=== PATIENT | male | born 1950 | race Two or more races ===

== ENCOUNTER 2022-07-02 23:10 | Emergency (ER) | payer OTHER, SELFPAY ==
[2022-07-02 23:16] VITALS: BP 129/72; PULSE 82; RESP 20; TEMP 36.7; BMI 24.2
[2022-07-03 00:13] VITALS: BP 127/70; PULSE 72; RESP 18; O2SAT 99
--- NOTE | 2022-07-03 00:13 | CRLHL7_ITS ---
For Patients: As a result of the Century Cures Act, medical imaging exams and procedure reports are released immediately into your electronic medical record. You may view this report before your referring provider. If you have questions, please contact your health care provider. INDICATION: Shortness of breath. TECHNIQUE: Chest 1 views. COMPARISON: 12/02/2015. FINDINGS: Cardiovasculature and mediastinum: Heart size and vasculature are normal in caliber and appearance. Lungs and pleural spaces: Lungs are clear. No sign of infiltrate or mass. No sign of pleural effusion. No pneumothorax. Bones and soft tissues: No significant findings. IMPRESSION: No acute findings and no significant changes from the prior exam. Dictated by Yasir Boyd MD @ 07/03/2022 1:12:06 AM (Electronically Signed)
[2022-07-03 00:24] VITALS: BP 124/87; PULSE 72; RESP 18; O2SAT 98
--- NOTE | 2022-07-03 00:27 | ED_ITS ---
HPI - General Adult General Date Seen: 07/03/22 Chief complaint: Shortness of Breath/Dyspnea Stated complaint: hard time breathing Time Seen by Provider: 07/03/22 00:02 Source: patient and [employer] Mode of arrival: ambulatory Limitations: no limitations History of Present Illness HPI narrative: Patient is a 71-year-old male, Polish speaking, history is obtained with the assistance of an firer bisque kiln. He reports that he went to bed feeling fine but woke up sometime later feeling short of breath. He says that he did not feel well at all at the time although he is feeling better now. Shortness of breath is not positional. In fact he feels better lying down than sitting up. He denies any chest pain, no fevers or cough, no unusual leg pain or swelling. He says that while he feels better he is afraid to go to sleep because he is afraid he might not wake up. He denies any significant medical history aside from what sounds like may be an inguinal hernia. He does not take any regular medications. He smokes 1-2 cigarettes a day. No significant alcohol use. Related Data Allergies Allergy/AdvReac Type Severity Reaction Status Date / Time No Known Drug Allergies Allergy Verified 07/02/22 23:21 Review of Systems Status of ROS: Reports: 10 or more systems reviewed and unremarkable except as noted in History and below [facility] Social History Smoking Status: Current every day smoker What tobacco products do you use: cigarettes Smoking packs per day: 0.25 Smoking cigarettes per day: 5.0 Do you use any of these nicotine containing products: None Second hand tobacco smoke exposure: No How often do you have a drink containing alcohol: monthly or less How many standard drinks containing alcohol do you have on a typical day: 1 or 2 How often do you have six or more drinks on one occasion: Never AUDIT-C Alcohol total score: 1 Non-prescribed substance use: denies use service: No Exam Narrative: Exam Narrative: Vital signs as noted above. In general, an alert, well-appearing patient. Breathing easily. Head: Normocephalic, atraumatic. Eyes: Pupils are equal reactive. Extraocular movements are full. Conjunctivae are normal. ENT: Mucous membranes are moist. Throat is normal. Neck: Supple without lymphadenopathy. Heart: Regular rate and rhythm. No murmur or rub. Lungs: Clear bilaterally. No increased work of breathing, crackles or wheezes. Abdomen: Soft and nontender. No organomegaly. Extremities: Well perfused. No edema. No calf tenderness. Pulses intact. Neurologic: Patient is alert and oriented to person and place. Speech is fluent. Face is symmetric. Moves all extremities equally. Affect: Normal. Skin: Warm and dry. Well perfused. Const: Vital Signs, click to edit/add: Vital Signs - 24 hr 07/02/22 23:16 07/03/22 00:13 07/03/22 00:13 Temperature 98.0 F Pulse Rate [Right Pulse Oximeter] 82 72 Respiratory Rate 20 18 Blood Pressure [Ri ght Upper Arm] 129/72 127/70 Pulse Oximetry 99 Oxygen Delivery Me thod Room Air 07/03/22 00:24 07/03/22 01:11 Temperature Pulse Rate [Right Pulse Oximeter] 72 72 Respiratory Rate 18 18 Blood Pressure [Ri ght Upper Arm] 124/87 119/71 Pulse Oximetry 98 98 Oxygen Delivery Me thod Room Air Room Air Documenting provider has reviewed patient's vital signs: yes Course Course Hospital Course: An EKG by my review shows a normal sinus rhythm, ventricular rate of 81 beats per minute. No acute ST segment changes. He does have an S1 Q3 T3 pattern. He is not hypoxic nor tachycardic, breathing easily now with symptoms that seem to largely have resolved. Labs and x-ray are pending. Lungs are clear, I do not hear any crackles suggestive of pulmonary edema, he does not have any wheezing or bronchospasm. No immediate treatment seems necessary. Chest x-ray by my review shows a mildly elevated right hemidiaphragm, no other acute findings. Final radiology report reveals stable chest x-ray without acute findings. Labs are unremarkable. Troponin is negative, D-dimer is 0.48. White count is normal, hemoglobin is 13.6. Metabolic panel is normal. LFTs are unremarkable. CRP is 0.5. COVID is negative. We were unable to do a BNP tonight due to the machine being down. However, on x-ray there is no evidence of significant pulmonary edema and I do not hear crackles on exam. He does not have a history of congestive heart failure. There is no evidence of acute coronary syndrome here. Nothing on exam or x-ray to suggest an infectious cause for symptoms. He is not anemic. Overall, I do not find a clear explanation for his earlier shortness of breath. At this time he is feeling back to normal. I have recommended that we discharge home, primary care follow-up in the next week or so. Return at any time for acute worsening or new symptoms such as fever, chest pain etcetera. Vital Signs Vital signs: Initial Vital Signs Temperature 98.0 F 07/02/22 23:16 Temperature Source Temporal Artery Scan 07/02/22 23:16 Pulse Rate 82 07/02/22 23:16 Pulse Rhythm Regular 07/02/22 23:16 Pulse Strength 3+ Normal 07/02/22 23:16 Respiratory Rate 20 07/02/22 23:16 Blood Pressure 129/72 07/02/22 23:16 Blood Pressure Mean 91 07/02/22 23:16 Blood Pressure Position Standing 07/02/22 23:16 Oxygen Delivery Method Room Air 07/02/22 23:16 Vital Signs Temperature 98.0 F 07/02/22 23:16 Pulse Rate 82 07/02/22 23:16 Respiratory Rate 20 07/02/22 23:16 Blood Pressure 129/72 07/02/22 23:16 Oxygen Delivery Method Room Air 07/02/22 23:16 Temperature 98.0 F 07/02/22 23:16 Pulse Rate 72 07/03/22 01:11 Respiratory Rate 18 07/03/22 01:11 Blood Pressure 119/71 07/03/22 01:11 Pulse Oximetry 98 07/03/22 01:11 Oxygen Delivery Method Room Air 07/03/22 01:11 Medical Decision Making Lab Data Labs: Lab Results 07/03/22 07/03/22 Range/Units 00:27 00:35 WBC 8.10 (4.50-11.00) K/uL RBC 4.29 L (4.30-5.90) m/uL Hgb 13.6 (13.5-17.5) gm/dL Hct 39.1 (37.0-53.0) % MCV 91 (80-100) fL MCH 32 (26-34) pg MCHC 35 (32-36) gm/dL RDW Coeff of Liliana 13.1 (11.5-15.5) % Plt Count 195 (140-440) K/uL Neut % (Auto) 54.6 (42.0-72.0) % Lymph % (Auto) 33.2 (20-44) % [place] % (Auto) 9.8 (0.0-11.0) % Eos % (Auto) 1.7 (0.0-7.0) % Baso % (Auto) 0.2 (0.0-3.0) % Neut # (Auto) 4.42 (1.7-7.0) K/uL Lymph # (Auto) 2.69 (0.90-2.90) K/uL [place] # (Auto) 0.80 (0.00-0.90) K/UL Eos # (Auto) 0.14 (0.00-0.50) K/uL Baso # (Auto) 0.02 (0.00-0.30) K/uL D-Dimer Quant (PE/DVT) 0.48 (0.00-0.50) ug/ml Sodium 138 (135-149) mmol/L Potassium 3.8 (3.6-5.1) mmol/L Chloride 104 (96-114) mmol/L Carbon Dioxide 25 (20-32) mmol/L BUN 16 (7-30) mg/dL Creatinine 0.7 (0.5-1.5) mg/dL Estimated Creat Clear 59.37 Estimated GFR 97 ml/min Glucose 152 H (60-115) mg/dL Calcium 8.9 (8.4-10.6) mg/dL Total Bilirubin 0.3 (0.1-1.5) mg/dL Direct Bilirubin 0.2 (0.0-0.5) mg/dL AST 23 (12-35) U/L ALT 23 (4-50) U/L Alkaline Phosphatase 99 (40-150) U/L C-Reactive Protein 0.5 (0.5-1.0) mg/dL NT-Pro-B Natriuret Pep Cancelled Total Protein 6.6 (6.0-8.3) g/dL Albumin 4.0 (3.3-5.0) g/dL SARS-CoV-2 (PCR) Negative SARS-CoV-2 (Negative) Discharge Plan Discharge Clinical Impression: SOB (shortness of breath) Patient Disposition: Home, Self-Care Condition: Improved Instructions: Shortness of Breath (ED) Additional Instructions: Follow-up with your clinic doctor if symptoms persist. Return for worsening symptoms. All of your test tonight were normal including test to check your heart and lungs. Activity Level: No Restrictions Discharge Diet: Regular Follow Up/Referrals: Julio Dominguez DO [Primary Care Provider] - Stand Alone Forms: [employer] Info Instructions
[2022-07-03 00:33] LABS: Basophils Absolute Auto 0.02 K/uL (0.00-0.30); Basophils Percent Auto 0.2 % (0.0-3.0); Eosinophils Absolute Auto 0.14 K/uL (0.00-0.50); Eosinophils Percent Auto 1.7 % (0.0-7.0); Hematocrit 39.1 % (37.0-53.0); Hemoglobin* 13.6 gm/dL (13.5-17.5); Immature Granulocytes Abs Auto 0.04 K/uL (0.00-0.30); Immature Granulocytes Pct Auto 0.5 %; Lymphocytes Absolute Auto 2.69 K/uL (0.90-2.90); Lymphocytes Percent Auto 33.2 % (20-44); Mean Corpuscular HGB Conc 35 gm/dL (32-36); Mean Corpuscular Hemoglobin 32 pg (26-34); Mean Corpuscular Volume 91 fL (80-100); Monocytes Percent Auto 9.8 % (0.0-11.0); Neutrophils Absolute Auto 4.42 K/uL (1.7-7.0); Neutrophils Percent Auto 54.6 % (42.0-72.0); Platelet Count* 195 K/uL (140-440); RDW Coefficient of Variation % 13.1 % (11.5-15.5); Red Blood Count 4.29 m/uL (4.30-5.90)
[2022-07-03 00:34] LABS: Slide Review Reflex No
[2022-07-03 00:58] LABS: Chloride* 104 mmol/L (96-114); Potassium* 3.8 mmol/L (3.6-5.1); Sodium* 138 mmol/L (135-149)
[2022-07-03 01:00] LABS: Alanine Aminotransferase* 23 U/L (4-50); Alkaline Phosphatase* 99 U/L (40-150); Aspartate Amino Transferase* 23 U/L (12-35); Bilirubin Direct* 0.2 mg/dL (0.0-0.5); Bilirubin Total* 0.3 mg/dL (0.1-1.5); Creatinine* 0.7 mg/dL (0.5-1.5); Est. Creatinine Clearance* 59.37; Estimated Glomerular Filt Rate 97 ml/min; Total Protein* 6.6 g/dL (6.0-8.3)
[2022-07-03 01:01] LABS: Blood Urea Nitrogen* 16 mg/dL (7-30); Carbon Dioxide* 25 mmol/L (20-32)
[2022-07-03 01:02] LABS: Calcium* 8.9 mg/dL (8.4-10.6); Glucose* 152 mg/dL (60-115)
[2022-07-03 01:04] LABS: C Reactive Protein* 0.5 mg/dL (0.5-1.0)
[2022-07-03 01:11] VITALS: BP 119/71; PULSE 72; RESP 18; O2SAT 98
[2022-07-03 01:21] LABS: SARS PCR* Negative SARS-CoV-2 (Negative)
[2022-07-03 02:04] LABS: D Dimer Quantitative* 0.48 ug/ml (0.00-0.50)
[2022-07-04 03:00] LABS: Troponin I* < 0.01 ng/mL (0.01-0.04)
== END 2022-07-03 02:15 | disposition home or self-care (01) ==
PROVIDERS: Emergency Provider Emergency Medicine; PCP Family Medicine
DX: R06.02 Shortness of breath (principal)
CPT/HCPCS: 36415; 71045; 80048; 80076; 83880; 84484; 85025; 85379; 86140; 87635; 93005; 94761; 99284; 99285

== ENCOUNTER 2022-09-05 14:58 | Emergency (ER) | payer OTHER, SELFPAY ==
[2022-09-05 15:08] VITALS: BP 131/71; PULSE 71; RESP 16; TEMP 36.8; O2SAT 97; BMI 25.8
--- NOTE | 2022-09-05 15:12 | ED_ITS ---
HPI - Male Genitourinary General Time Seen by Provider: 15:12 Date Seen: 09/05/22 Chief complaint: Urogenital Problems, Male Stated complaint: Testicular pain Time Seen by Provider: 09/05/22 14:59 Source: patient and RN notes reviewed Mode of arrival: ambulatory Limitations: no limitations History of Present Illness HPI Narrative: Patient is a 71-year-old male coming in with left testicular pain. He has been using an [id number] anti-inflammatory that is from [place] called Flanax, took this at 10:00 a.m. and is not helping. He denies any trauma but thinks this left testicular pain could be related to the work he does. He states about 8 years ago or so someone told him that he had a fatty mass in this left testicle and it will sometimes bother him. He denies any acute trauma, no fevers or chills. Pain does radiate up in to the groin. No nausea vomiting. Maybe some difficulty with urination at times. No hematuria. He went to urgent care initially and they did refer him down here as he will need an ultrasound. He also does complain of abdominal pain, points to left mid abdomen where the pain is. Complaint: testicle pain Related Data Home Medications Medication Instructions Recorded Confirmed naproxen sodium 220 mg tablet 220 mg PO Q12H PRN 09/05/22 09/05/22 (Flanax (naproxen)) Previous Rx's Medication Instructions Recorded cephalexin 500 mg tablet 500 mg PO TID #21 tabs 09/05/22 oxycodone 5 mg tablet 5 mg PO Q6H PRN pain #20 tabs 09/05/22 tamsulosin 0.4 mg capsule (Flomax) 0.4 mg PO DAILY #14 caps 09/05/22 Allergies Allergy/AdvReac Type Severity Reaction Status Date / Time No Known Drug Allergies Allergy Verified 07/02/22 23:21 Review of Systems Status of ROS: Reports: 6 or more systems reviewed and unremarkable except as noted in History and below PFSH PFSH Social History Smoking Status: Current every day smoker What tobacco products do you use: cigarettes Smoking packs per day: 0.25 Smoking cigarettes per day: 5.0 Do you use any of these nicotine containing products: None Second hand tobacco smoke exposure: No How often do you have a drink containing alcohol: monthly or less How many standard drinks containing alcohol do you have on a typical day: 1 or 2 How often do you have six or more drinks on one occasion: Never AUDIT-C Alcohol total score: 1 Non-prescribed substance use: denies use service: No Exam Const: Vital Signs, click to edit/add: Vital Signs - 24 hr 09/05/22 15:08 09/05/22 17:14 Temperature 98.2 F Pulse Rate [Pulse Oximeter] 71 55 L Respiratory Rate 16 12 Blood Pressure [Le ft Upper Arm] 131/71 125/73 Pulse Oximetry 97 96 Oxygen Delivery Me thod Room Air Room Air Documenting provider has reviewed patient's vital signs: yes Common normals: no apparent distress, average body habitus, oriented x3, no limitations, healthy appearing, alert and well nourished General appearance: cooperative, comfortable, well kempt and well developed HENMT: Common normals: normocephalic, head/scalp atraumatic and hearing grossly normal bilaterally Head and scalp: normocephalic and atraumatic Face and sinus: normal facial exam Eye: Common normals: PERRL, EOMs intact bilaterally, conjunctivae normal and no scleral icterus Conjunctiva: conjunctiva(e) normal Pupil: PERRL Lymph: Lymphatic: no lymphadenopathy noted GI: Common normals: Normal to inspection, nondistended, normoactive bowel sounds present, soft to palpation and non-tender Palpation: soft : Penis: normal penis and uncircumcised Scrotum: testes descended bilaterally Other: Visual appearance looks normal and symmetric, no significant swelling noted. On examination the left testicle is tender over the posterior aspect. There is a fullness and contour change on the superior posterior aspect of the testicle. This could be epididymal or the testicle itself, cannot differentiate this lesion further. He is definitely tender. It is maybe a little softer than the testicular tissue itself but it is not fully fluctuant. He is quite tender when I palpate this area. Neuro: Common normals: oriented x3 Sensorium/orientation: alert Psych: Appearance: well kempt Course Course Hospital Course: We will obtain urinalysis, basic blood work and get a scrotal ultrasound. Have reviewed with patient that we need to better define what actually is wrong and that will direct our treatment. Reevaluation(s) Time of Reevaluation #1: 18:54 Reevaluation #1: Have reviewed with patient the finding of obstructing kidney stone on CT, stable left testicular/epididymal lesion. Reviewed plan with outpatient urology. All institutions are on divert and have no hospital beds in the [facility] area, expanded [facility] including [facility] and [facility]. He is stable and at this time should be able to managed outpatient, have stressed to him the importance of this follow up to save this left kidney from damage. Patient's pain is gone with the 5 mg oral oxycodone. Consultations Consultation #1: Contacted Urology at [place], spoke with Dr. Landon, he does agree to see patient in follow-up in clinic. There is no availability for inpatient at this time, patient there medically should be able to be managed outpatient given current labs/clinical status. Time: 18:39 Vital Signs Vital signs: Initial Vital Signs Temperature 98.2 F 09/05/22 15:08 Temperature Source Temporal Artery Scan 09/05/22 15:08 Pulse Rate 71 09/05/22 15:08 Pulse Rhythm Regular 09/05/22 15:08 Respiratory Rate 16 09/05/22 15:08 Blood Pressure 131/71 09/05/22 15:08 Blood Pressure Mean 91 09/05/22 15:08 Pulse Oximetry 97 09/05/22 15:08 Oxygen Delivery Method Room Air 09/05/22 15:08 Vital Signs Temperature 98.2 F 09/05/22 15:08 Pulse Rate 71 09/05/22 15:08 Respiratory Rate 16 09/05/22 15:08 Blood Pressure 131/71 09/05/22 15:08 Pulse Oximetry 97 09/05/22 15:08 Oxygen Delivery Method Room Air 09/05/22 15:08 Temperature 98.2 F 09/05/22 15:08 Pulse Rate 55 L 09/05/22 17:14 Respiratory Rate 12 09/05/22 17:14 Blood Pressure 125/73 09/05/22 17:14 Pulse Oximetry 96 09/05/22 17:14 Oxygen Delivery Method Room Air 09/05/22 17:14 MDM - Male Genitourinary Lab Data Attestation: I reviewed the patient's lab results. Labs: Lab Results 09/05/22 09/05/22 Range/Units 15:15 15:50 WBC 12.86 H (4.50-11.00) K/uL RBC 4.57 (4.30-5.90) m/uL Hgb 14.4 (13.5-17.5) gm/dL Hct 41.4 (37.0-53.0) % MCV 91 (80-100) fL MCH 32 (26-34) pg MCHC 35 (32-36) gm/dL RDW Coeff of Liliana 12.8 (11.5-15.5) % Plt Count 216 (140-440) K/uL Neut % (Auto) 69.4 (42.0-72.0) % Lymph % (Auto) 21.4 (20-44) % [place] % (Auto) 8.2 (0.0-11.0) % Eos % (Auto) 0.6 (0.0-7.0) % Baso % (Auto) 0.2 (0.0-3.0) % Neut # (Auto) 8.90 H (1.7-7.0) K/uL Lymph # (Auto) 2.80 (0.90-2.90) K/uL [place] # (Auto) 1.10 H (0.00-0.90) K/UL Eos # (Auto) 0.10 (0.00-0.50) K/uL Baso # (Auto) 0.00 (0.00-0.30) K/uL Abs Immat Gran (auto) 0.00 (0.00-0.30) K/uL Imm/Tot Granulo (auto) 0.2 % Sodium 137 (135-149) mmol/L Potassium 3.8 (3.6-5.1) mmol/L Chloride 103 (96-114) mmol/L Carbon Dioxide 24 (20-32) mmol/L BUN 19 (7-30) mg/dL Creatinine 0.9 (0.5-1.5) mg/dL Estimated Creat Clear 59.37 Estimated GFR 90 ml/min Glucose 90 (60-115) mg/dL Calcium 9.0 (8.4-10.6) mg/dL C-Reactive Protein < 0.5 L (0.5-1.0) mg/dL Urine Color Yellow (Yellow) Urine Appearance Cloudy A (Clear) Urine pH 5.5 (5.0-8.5) Ur Specific [place] 1.025 (1.000-1.030) Urine Protein 1+ A (Negative) Urine Glucose (UA) Negative (Negative) Urine Ketones Negative (Negative) Urine Blood 3+ A (Negative) Urine Nitrite Negative (Negative) Urine Bilirubin Negative (Negative) Urine Urobilinogen 0.2 (0.2-1.0) Ur Leukocyte Esterase Negative (Negative) Urine RBC 10-25 A (0-2) Urine WBC 0-2 (0-5) Ur Squamous Epith Cells Few (None-Few) Urine Bacteria Few A (None) Imaging Data CT scan - abdomen: Attestation: I have reviewed the pertinent imaging results. Radiologist's impression: Patient: SHAINA BEGUM Facility:?[facility] Patient ID:?[id number] Site Patient ID:?[id number]. Site :?[id number] Study:?CT Abdomen/Pelvis WITHOUT-09/05/2022 5:09:32 PM Ordering Physician:?Jluis Cuellar Final Report: INDICATION: Left mid abdominal pain with microscopic hematuria. TECHNIQUE: Axial images were obtained from the diaphragm to the pubic symphysis. Reformats were obtained in the coronal and sagittal plane. IV Contrast: None Oral Contrast: None COMPARISON: None. FINDINGS: Lower chest: Calcified granulomata within the right lung base. Liver: Calcification within the liver consistent with old granulomatous disease. Cyst within the liver have the dome measuring 16 millimeters. Other subcentimeter hypodensities are too small for characterization. Gallbladder and bile ducts: Unremarkable. No stones or inflammation. No biliary dilatation. Spleen: Unremarkable. Normal in size without mass. Pancreas: Unremarkable. No mass or inflammation. Adrenal glands: Unremarkable. No nodules. Kidneys: Right kidney is normal in contour without hydronephrosis. Nephrolithiasis present on the left with perinephric inflammatory fat stranding and small perinephric fluid. Moderate left hydronephrosis extends to the ureterovesicular junction where there is an obstructing 11 x 5 millimeter stone. Vasculature: Unremarkable. GI tract: The stomach is unremarkable. No dilated loops of large or small intestine. Appendix unremarkable. Colonic diverticulosis without localizing inflammation. Pelvis: Mild prostatic enlargement. 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 IMPRESSION: 1. Nephrolithiasis with moderate left hydronephrosis and obstructing left ureterovesicular junction stone measuring 11 x 5 millimeters. 2. Colonic diverticulosis. 3. Old granulomatous disease. Please note that all CT scans at this facility use dose modulation, iterative reconstruction, and/or weight-based dosing when appropriate to reduce radiation dose to as low as reasonably achievable. Dictated by Keven Simpson MD @ 09/05/2022 5:28:28 PM (Electronic Signature) US scrotum: Attestation: I have reviewed the pertinent imaging results. Radiologist's impression: Patient: ALE MERRITT Facility:?[facility] Patient ID:?[id number] Site Patient ID:?[id number]. Site :?[id number] Study:?US Testicle SCROTUM-09/05/2022 4:31:42 PM Ordering Physician:?Jluis Cuellar Final Report: Indication: Left testicular pain. Technique: Ultrasound of the scrotum and contents. Sonographic chi-scale images were obtained with spectral and color Doppler waveform and spectral waveform analysis of the testicles. Comparison: Scrotal ultrasound dated 04/11/2011. Findings: Both testicles are normal in size and echotexture. Right testicle measures 4.1 x 2.2 x 3.2 cm. Left testicle measures 4.4 x 2.0 x 3.0 cm. No suspicious intratesticular mass is identified. Normal arterial and venous color Doppler blood flow and spectral waveforms are present in both testicles. Epididymis: Superior to the left testicle, possibly arising from the left epididymis is a large 4.4 x 2.4 x 3.3 cm cystic structure with internal debris. This does not appear significantly changed compared to a prior study in 2012, which measured 4.9 x 2.6 x 3.6 cm. There is no suspicious internal vascularity. Other: No varicocele shown. Impression: 1. Large cystic structure with internal debris superior to the left testicle, possibly arising from the left epididymis, measuring 4.4 x 2.4 x 3.3 cm. This is essentially unchanged compared to a prior study in 2012, and is therefore likely benign. Differential includes a loculated complex hydrocele versus spermatocele. 2. No evidence of testicular torsion bilaterally. Dictated by Alexandra Shelby MD @ 09/05/2022 5:44:49 PM (Electronic Signature) Discharge Plan Discharge Clinical Impression: Benign neoplasm of left epididymis, Urinary tract obstruction due to kidney stone Patient Disposition: Home, Self-Care Condition: Stable Instructions: Kidney Stones (ED), Renal Colic (ED) Additional Instructions: Need to drink plenty of fluids. I believe your pain is coming from an obstructing kidney stone that is large in the left side, 11 x 5 mm. This is unlikely to pass on its own. We have spoken with Dr. Landon a urologist in [place]. Call his clinic tomorrow to get scheduled for an appointment next week, phone number is [phone]. Use Tylenol 1000 mg 3 times a day baseline for pain. Can use the oxycodone as needed for severe pain, cannot drive or operate machinery while you are on this. Oxycodone can be constipating, may need to use stool softener such as senna or MiraLax while on this. Use Flomax daily until stone has passed or has been surgically removed. Take antibiotic as prescribed. If you develop fever, uncontrolled pain, uncontrolled vomiting, do recommend re-evaluation in the setting of this retained kidney stone. Can talk to the urologist about the left testicular lesion when you follow-up. Bring disc with radiology images to the urologist appointment. Activity Level: Activity as Tolerated Prescriptions: New cephalexin 500 mg tablet 500 mg PO TID Qty: 21 0RF tamsulosin [Flomax] 0.4 mg capsule 0.4 mg PO DAILY Qty: 14 0RF oxycodone 5 mg tablet 5 mg PO Q6H PRN (Reason: pain) Qty: 20 0RF No Action naproxen sodium [Flanax (naproxen)] 220 mg tablet 220 mg PO Q12H PRN Follow Up/Referrals: Julio Dominguez DO [Referring] - Stand Alone Forms: [employer] Info Instructions
[2022-09-05 15:33] LABS: Appearance Urine Cloudy (Clear); Bilirubin Urine Negative (Negative); Blood Urine 3+ (Negative); Color Urine Yellow (Yellow); Glucose Urine Negative (Negative); Ketones Urine Negative (Negative); Leukocyte Esterase Urine Negative (Negative); Nitrite Urine Negative (Negative); Protein Urine 1+ (Negative); Specific Gravity Urine 1.025 (1.000-1.030); Urobilinogen Urine 0.2 (0.2-1.0); pH Urine 5.5 (5.0-8.5)
[2022-09-05 16:02] LABS: Basophils Percent Auto 0.2 % (0.0-3.0); Eosinophils Percent Auto 0.6 % (0.0-7.0); Hematocrit 41.4 % (37.0-53.0); Hemoglobin* 14.4 gm/dL (13.5-17.5); Immature Granulocytes Pct Auto 0.2 %; Lymphocytes Percent Auto 21.4 % (20-44); Mean Corpuscular HGB Conc 35 gm/dL (32-36); Mean Corpuscular Hemoglobin 32 pg (26-34); Mean Corpuscular Volume 91 fL (80-100); Monocytes Percent Auto 8.2 % (0.0-11.0); Neutrophils Percent Auto 69.4 % (42.0-72.0); Platelet Count* 216 K/uL (140-440); RDW Coefficient of Variation % 12.8 % (11.5-15.5); Red Blood Count 4.57 m/uL (4.30-5.90); White Blood Count* 12.86 K/uL (4.50-11.00)
[2022-09-05 16:03] LABS: Bacteria Urine Few; Squamous Epithelial Cell Urine Few (None-Few); WBC Urine 0-2 (0-5)
[2022-09-05 16:06] LABS: Slide Review Reflex No
[2022-09-05 16:17] LABS: Chloride* 103 mmol/L (96-114)
[2022-09-05 16:18] LABS: Potassium* 3.8 mmol/L (3.6-5.1); Sodium* 137 mmol/L (135-149)
[2022-09-05 16:20] LABS: Creatinine* 0.9 mg/dL (0.5-1.5); Est. Creatinine Clearance* 59.37; Estimated Glomerular Filt Rate 90 ml/min
[2022-09-05 16:21] LABS: Blood Urea Nitrogen* 19 mg/dL (7-30); Carbon Dioxide* 24 mmol/L (20-32); Glucose* 90 mg/dL (60-115)
--- NOTE | 2022-09-05 16:21 | CRLHL7_ITS ---
For Patients: As a result of the Century Cures Act, medical imaging exams and procedure reports are released immediately into your electronic medical record. You may view this report before your referring provider. If you have questions, please contact your health care provider. INDICATION: Left mid abdominal pain with microscopic hematuria. TECHNIQUE: Axial images were obtained from the diaphragm to the pubic symphysis. Reformats were obtained in the coronal and sagittal plane. IV Contrast: None Oral Contrast: None COMPARISON: None. FINDINGS: Lower chest: Calcified granulomata within the right lung base. Liver: Calcification within the liver consistent with old granulomatous disease. Cyst within the liver have the dome measuring 16 millimeters. Other subcentimeter hypodensities are too small for characterization. Gallbladder and bile ducts: Unremarkable. No stones or inflammation. No biliary dilatation. Spleen: Unremarkable. Normal in size without mass. Pancreas: Unremarkable. No mass or inflammation. Adrenal glands: Unremarkable. No nodules. Kidneys: Right kidney is normal in contour without hydronephrosis. Nephrolithiasis present on the left with perinephric inflammatory fat stranding and small perinephric fluid. Moderate left hydronephrosis extends to the ureterovesicular junction where there is an obstructing 11 x 5 millimeter stone. Vasculature: Unremarkable. GI tract: The stomach is unremarkable. No dilated loops of large or small intestine. Appendix unremarkable. Colonic diverticulosis without localizing inflammation. Pelvis: Mild prostatic enlargement. 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 IMPRESSION: 1. Nephrolithiasis with moderate left hydronephrosis and obstructing left ureterovesicular junction stone measuring 11 x 5 millimeters. 2. Colonic diverticulosis. 3. Old granulomatous disease. Please note that all CT scans at this facility use dose modulation, iterative reconstruction, and/or weight-based dosing when appropriate to reduce radiation dose to as low as reasonably achievable. Dictated by Keven Simpson MD @ 09/05/2022 5:28:28 PM (Electronically Signed)
[2022-09-05 16:25] LABS: C Reactive Protein* < 0.5 mg/dL (0.5-1.0)
[2022-09-05] MEDS: OXYCODONE 5 MG TABLET PO (16:37)
[2022-09-05] MEDS: ONDANSETRON ODT 4 MG TAB PO (16:37)
[2022-09-05 17:14] VITALS: BP 125/73; PULSE 55; RESP 12; O2SAT 96
[2022-09-05 19:09] VITALS: BP 130/73; PULSE 55; RESP 16; O2SAT 97
== END 2022-09-05 19:26 | disposition home or self-care (01) ==
PROVIDERS: Emergency Provider Family Medicine
DX: D29.32 Benign neoplasm of left epididymis (principal); N13.9 Obstructive and reflux uropathy, unspecified; N20.0 Calculus of kidney
CPT/HCPCS: 36415; 74176; 76870; 80048; 81001; 85025; 86140; 87086; 93976; 99284; 99285; A9270